=== PATIENT | female | born 1955 | race Two or more races ===

== ENCOUNTER 2020-07-04 12:24 | Inpatient (IN) | payer OTHER ==
[~2020-07-04] VITALS: Ht 162.6 cm; Wt 73.9 kg
--- NOTE | 2020-07-04 15:18 | NUR ---
MARLEEN ALICIA PAGED FOR ADMITTING ORDERS.
[2020-07-04 15:24] VITALS: BP 112/56
--- NOTE | 2020-07-04 15:56 | NUR ---
DR. MARLEEN ALICIA CALLED AND VERBALIZED HE WILL PUT ADMISSION ORDERS.
--- NOTE | 2020-07-04 16:00 | NUR ---
KAIT RN NOTE: Received Patient form [facility]. A/O x 4. Speaks Chinese but able to understand Azeri. Spoke with daughter over the phone for oral translation. Patient placed on Tele monitor, NSR 74. Pt on room air, no complaint of shortness of breath or respiratory distress. Dr is MATHEW Tan. Pt skin is intact, but refuse to do body check. Spoke with daughter who stated that mother did not want to be moved, had no skin issues. Pt has LAC and Right Wrist HL IV intact and flushed well. Spoke with daughter, who is the [employer] Designer per daughter statement. Daughter gave all history on mother. Hospital orientation done. Vital signs taken, Belongings done by [employer] [facility]PER. Called Med Recon Nurse Wojciech to do Med Recon. Bed in low, locked position. Safety measures observed. Call light in reach. Admitted with diagnosis Colitis. Clear Liquid diet. Will continue to monitor closely.
[2020-07-04] MEDS ORDERED: ATOR80TA PO (16:52)
[2020-07-04] MEDS ORDERED: SPIR25TA PO (16:52)
[2020-07-04] MEDS ORDERED: IPRA12.9 IH (16:52)
[2020-07-04] MEDS ORDERED: NITR0.4T48 SL (16:52)
[2020-07-04] MEDS ORDERED: NORT10CA PO (16:52)
[2020-07-04] MEDS ORDERED: FERR325T23 PO (16:52)
[2020-07-04] MEDS ORDERED: INSU100V36 SQ (16:52)
[2020-07-04] MEDS ORDERED: SACU1TAB7 PO (16:52)
[2020-07-04] MEDS ORDERED: IPRA0.2S49 NEB (16:52)
[2020-07-04] MEDS ORDERED: OMEP20CA15 PO (16:52)
[2020-07-04] MEDS ORDERED: EZET10TA16 PO (16:52)
[2020-07-04] MEDS ORDERED: ALBU18HF2 IH (16:52)
[2020-07-04] MEDS ORDERED: INSU100I26 SQ (16:52)
[2020-07-04] MEDS ORDERED: CLOP75TA15 PO (16:52)
[2020-07-04] MEDS ORDERED: ASPI-1498 PO (16:52)
[2020-07-04] MEDS ORDERED: ISOS30TA6 PO (16:52)
[2020-07-04] MEDS ORDERED: CARV6.252 PO (16:52)
[2020-07-04] MEDS ORDERED: FURO-144 PO (16:52)
[2020-07-04] MEDS ORDERED: ALBU2.5V38 IH (16:52)
[2020-07-04] MEDS ORDERED: AMIO200T4 PO (16:52)
--- NOTE | 2020-07-04 17:00 | NUR ---
MS RN NOTE Dr. Enrique Tan DNP at bedside, speaking and assessing patient. Number of daughter given to Dr. Tan. Dr. Tan ordered clear liquid diet, and morphine 2mg PO q4h. Paperwork from Ryan Dutta given to Stated that he will call the daughter
[2020-07-04] MEDS ORDERED: MORPHINE SULFATE INJ 2 MG/ML DISP.SYRIN IM PRN (17:30)
[2020-07-04] MEDS ORDERED: ALBUTEROL FS 2.5 MG/3 ML VIAL.NEB IH PRN (17:30)
[2020-07-04] MEDS ORDERED: MORPHINE SULFATE INJ 2 MG/ML DISP.SYRIN IV PRN (17:30)
[2020-07-04] MEDS ORDERED: Z GUARD REMEDY 2 OZ OINT TP PRN (17:30)
[2020-07-04] MEDS ORDERED: ONDANSETRON HCL/PF 4 MG/2 ML VIAL IVP PRN (17:30)
[2020-07-04] MEDS ORDERED: NITROGLYCERIN 0.4 MG/TAB BOTTLE SL PRN (17:30)
[2020-07-04] MEDS ORDERED: IPRATROPIUM NEB FS 0.5 MG/2.5 ML AMPUL.NEB NEB PRN (17:30)
[2020-07-04] MEDS: IV NS 0.9% 1,000 ML IV PRN (17:38)
[2020-07-04] MEDS ORDERED: PIPERACILLIN /TAZOBACTAM 2.25 G in IV D5W 50 ML IV SCH (18:00)
[2020-07-04] MEDS ORDERED: DEXTROSE 50%-WATER 50 ML DISP.SYRIN IV PRN (18:30)
--- NOTE | 2020-07-04 18:51 | NUR ---
MS RN NOTE: Pt in bed in lowest position. Pt to continue IV fluids. Waiting for Zosyn to be delivered, Pharmacy stated it is to be delivered soon. Pt on SCD pumps. Spoke with daughter to update on pt condition. Daughter's phone number given to MD. All needs attended. Pt requested breathing treatment, RT aware, currently awaiting RT treatment. No SOB. Will continue to closely monitor.
[2020-07-04] MEDS ORDERED: PIPERACILLIN /TAZOBACTAM 3.375 G in IV D5W 50 ML IV ONE (19:00)
[2020-07-04] MEDS: ALBUTEROL FS 2.5 MG/3 ML VIAL.NEB NEB SCH (19:44)
[2020-07-04 20:00] VITALS: BP 95/56
[2020-07-04] MEDS: CARVEDILOL 6.25 MG TABLET PO SCH (21:00)
[2020-07-04] MEDS ORDERED: ENOXAPARIN SODIUM 40 MG/0.4 ML DISP.SYRIN SQ SCH (21:00)
[2020-07-04] MEDS: ATORVASTATIN 40 MG TABLET PO SCH (21:41)
[2020-07-04] MEDS: NORTRIPTYLINE HCL 10 MG CAPSULE PO SCH (21:41)
[2020-07-04] MEDS: BLOOD SUGAR DIAGNOSTIC 1 EACH STRIP IN SCH (21:42)
[2020-07-04] MEDS: INSULIN GLARGINE, 100 UNIT/ML CARTRIDGE SQ SCH (21:52)
[2020-07-04] MEDS: INSULIN REGULAR, HUMAN 100 UNIT/ML 3 ML VIAL SQ PRN (21:53)
[2020-07-05] VITALS (7 sets, daily range): BP systolic 89–110; BP diastolic 35–75
[2020-07-05] MEDS: PIPERACILLIN /TAZOBACTAM 3.375 G in IV D5W 100 ML IV SCH ×3 (00:47→18:24)
[2020-07-05] MEDS: ALBUTEROL FS 2.5 MG/3 ML VIAL.NEB NEB SCH ×4 (01:30→20:07)
[2020-07-05] MEDS: ACETAMINOPHEN 325 MG TABLET PO PRN (03:38)
[2020-07-05 06:29] LABS: BASOPHILS % (AUTO) 0.4 % (0.0-2.0); HEMATOCRIT 29 % (33-45); HEMOGLOBIN 9.6 g/dL (11.5-14.8); LYMPHOCYTES # (AUTO) 1.2 /CMM (0.8-4.8); LYMPHOCYTES % (AUTO) 13.8 % (20.0-44.0); MEAN CORPUSCULAR HGB CONC 33 g/dl (31.0-36.0); MEAN CORPUSCULAR VOLUME 84 fL (82-100); MONOCYTES # (AUTO) 0.5 /CMM (0.1-1.30); MONOCYTES % (AUTO) 5.6 % (2.0-12.0); NEUTROPHILS # (AUTO) 6.7 /CMM (1.8-8.9); NEUTROPHILS % (AUTO) 79.2 % (43.0-81.0); PLATELET COUNT (AUTO) 124 /CMM (150-450); RED BLOOD CELL COUNT(AUTO) 3.44 MIL/uL (4.0-5.2); WHITE BLOOD COUNT (AUTO) 8.5 K/uL (4.3-11.0)
--- NOTE | 2020-07-05 07:15 | NUR ---
KAIT RN OPENING NOTES RECEIVED PATIENT RESTING ON BED. A/O X4. SPEAKS HEBREW BUT UNDERSTANDS PORTUGUESE. PT ON TELE MONITOR, SR @ 71. PT IS ON ROOM AIR, O2 SATURATION @ 96%. NO SOB OR ACUTE RESPIRATORY DISTRESS NOTED AT THIS TIME. PT HAS L AC WITH NS @75ML/HR AND R WRIST HL INTACT, PATENT AND FLUSHED. IV INFUSING WELL. SKIN IS INTACT. NO PAIN AT THIS TIME. SAFETY MEASURES OBSERVED. CALL LIGHT WITHIN REACH. BED LOCKED AND AT LOWEST POSITION. WILL CONTINUE TO MONITOR
[2020-07-05] MEDS: PANTOPRAZOLE 40 MG TABLET.DR PO SCH (07:30)
[2020-07-05] MEDS: INSULIN LISPRO/ASPART 100 UNIT/ML CARTRIDGE SQ SCH ×3 (07:30→17:30)
[2020-07-05] MEDS: BLOOD SUGAR DIAGNOSTIC 1 EACH STRIP IN SCH ×4 (07:30→22:03)
[2020-07-05 08:18] LABS: BILIRUBIN,TOTAL 0.5 mg/dL (0.2-1.0); TOTAL PROTEIN, SERUM 6.2 g/dL (6.4-8.2)
[2020-07-05 08:19] LABS: ALBUMIN 2.8 g/dL (3.4-5.0); PHOSPHORUS 2.9 mg/dL (2.5-4.9)
[2020-07-05 08:20] LABS: MAGNESIUM 2.3 mg/dL (1.8-2.4)
[2020-07-05 08:22] LABS: CALCIUM, SERUM 8.4 mg/dL (8.5-10.1); CREATININE 1.9 mg/dL (0.6-1.3)
--- NOTE | 2020-07-05 08:22 | NUR ---
NO S/S OF SOB NOTED. RESP TX DEFERRED. DAUGHTER HELPED TRANSLATE VIA PHONE CALL. WILL CONT TO MONITOR Addendum: 07/05/20 at 0823 by KADIE MATHEW RT Amended: Links added.
[2020-07-05] MEDS: EZETIMIBE 10 MG TABLET PO SCH (09:07)
[2020-07-05] MEDS: SPIRONOLACTONE 25 MG TABLET PO SCH (09:07)
[2020-07-05] MEDS: FUROSEMIDE 40 MG TABLET PO SCH (09:07)
[2020-07-05] MEDS: CLOPIDOGREL BISULFATE 75 MG TABLET PO SCH (09:08)
[2020-07-05] MEDS: FERROUS SULFATE (325 MG) 325 MG/TAB TABLET PO SCH (09:08)
[2020-07-05] MEDS: ISOSORBIDE MONONITRATE (30MG) 30 MG TAB.SR.24H PO SCH (09:08)
[2020-07-05] MEDS: CARVEDILOL 6.25 MG TABLET PO SCH ×2 (09:08→22:03)
[2020-07-05] MEDS: ASPIRIN EC 81 MG TABLET.DR PO SCH (09:08)
[2020-07-05] MEDS: AMIODARONE HCL 200 MG TABLET PO SCH (09:09)
--- NOTE | 2020-07-05 17:30 | NUR ---
RN NOTES PT REFUSED INSULIN, BLOOD SUGAR OF 78. WILL CONTINUE TO MONITOR
--- NOTE | 2020-07-05 18:49 | NUR ---
KAIT RN CLOSING NOTES PATIENT RESTING ON BED. A/O X4. SPEAKS BULGARIAN BUT UNDERSTANDS GREEK. PT ON TELE MONITOR, SR @ 70S. PT IS ON ROOM AIR, O2 SATURATION @ 96%. NO SOB OR ACUTE RESPIRATORY DISTRESS NOTED AT THIS TIME. PT HAS L AC WITH NS @75ML/HR AND R WRIST HL INTACT, PATENT AND FLUSHED. IV INFUSING WELL. SKIN IS INTACT. NO PAIN AT THIS TIME. ALL MEDS GIVEN ORDERED. ALL NEEDS ATTENDED. SAFETY MEASURES OBSERVED. CALL LIGHT WITHIN REACH. BED LOCKED AND AT LOWEST POSITION. WILL ENDORSE TO FOREST OFFICER FOR RHONDA
--- NOTE | 2020-07-05 19:10 | NUR ---
RN OPENING NOTES RECEIVED PATIENT IN BED. ALERT AND ORIENTED X4. MACEDONIAN SPEAKING PREFERRED. FULL CODE. ON ROOM AIR TOLERATING WELL. NO SIGNS OF SHORTNESS OF BREATH OR RESPIRATORY DISTRESS. BREATHING IS EVEN AND UNLABORED. MED SURG PROTOCOLS IN PLACE. BATHROOM PRIVILEGES, AMBULATE WITH ASSIST. SKIN IS WARM DRY AND INTACT. SOFT DIET NOTED. IV SITES NOT PATENT, REMOVED BOTH WITH CATHETERS INTACT. HELD WITH 2X2 GAUZE FOR 1 MINUTE ON EACH SITE. PLACED #22 ON RIGHT HAND. PATENT INTACT, INFUSING IV FLUIDS NS @75 ML/HR. PT DENIES PAIN AT THIS TIME. BED IS LOCKED IN LOWEST POSITION. CALL LIGHT WITHIN REACH. WILL CONTINUE TO MONITOR.
[2020-07-05] MEDS: NORTRIPTYLINE HCL 10 MG CAPSULE PO SCH (22:00)
[2020-07-05] MEDS: ATORVASTATIN 40 MG TABLET PO SCH (22:04)
[2020-07-05] MEDS: ENOXAPARIN SODIUM 30 MG/0.3 ML DISP.SYRIN SQ SCH (22:07)
[2020-07-05] MEDS: INSULIN GLARGINE, 100 UNIT/ML CARTRIDGE SQ SCH (22:28)
[2020-07-05] MEDS: INSULIN REGULAR, HUMAN 100 UNIT/ML 3 ML VIAL SQ PRN (22:35)
--- NOTE | 2020-07-06 00:12 | NUR ---
PT DAUGHTER, REHAB CALLED FOR UPDATES. VOCALIZED DESIRE TO BE INFORMED ON PROGRESS.
[2020-07-06] MEDS: PIPERACILLIN /TAZOBACTAM 3.375 G in IV D5W 100 ML IV SCH ×3 (01:03→17:19)
[2020-07-06] MEDS: IV NS 0.9% 1,000 ML IV PRN (01:03)
[2020-07-06] MEDS: ACETAMINOPHEN 325 MG TABLET PO PRN ×2 (01:50→08:24)
[2020-07-06] MEDS: ALBUTEROL FS 2.5 MG/3 ML VIAL.NEB NEB SCH ×4 (01:51→19:30)
--- NOTE | 2020-07-06 01:51 | NUR ---
PT VERBALIZED PAIN /10 CONCENTRATED IN THE RIGHT LOWER ABDOMEN, PT REQUESTED TYLENOL Addendum: 07/06/20 at 0530 by ALLAN LEGGETT RN REASSESSMENT OF PAIN @0230 PT VERBALIZED DECREASED PAIN, TOLERABLE SCALING 10/22. MORE DISCOMFORT RATHER THAN PAIN. VERBALIZED FEELINGS OF BEING FULL, AND FLATUS PASSING. PT VERBALIZED DESIRE TO SLEEP. WILL CONTINUE TO SLEEP.
[2020-07-06 04:00] VITALS: BP 108/50
--- NOTE | 2020-07-06 07:48 | NUR ---
RN CLOSING PT IS RESTING IN BED. MED SURG MONITORING IN PLACE. PT IS TOLERATING ROOM AIR, NO SIGNS OF RESPIRATORY DISTRESS OR SHORTNESS OF BREATH. BREATHING IS EVEN AND UNLABORED. PATIENT HAD ONE BOWEL MOVEMENT. IV SITES ARE PATENT AND INTACT. BED IS LOCKED IN LOWEST POSITION. CALL LIGHT WITHIN REACH. ENDORSED TO ONCOMING NURSE FOR CONTINUATION OF CARE.
[2020-07-06 08:00] VITALS: BP 102/44
[2020-07-06] MEDS: BLOOD SUGAR DIAGNOSTIC 1 EACH STRIP IN SCH ×4 (08:00→21:54)
[2020-07-06] MEDS: EZETIMIBE 10 MG TABLET PO SCH (08:10)
[2020-07-06] MEDS: FUROSEMIDE 40 MG TABLET PO SCH (08:11)
[2020-07-06] MEDS: PANTOPRAZOLE 40 MG TABLET.DR PO SCH (08:11)
[2020-07-06] MEDS: CLOPIDOGREL BISULFATE 75 MG TABLET PO SCH (08:11)
[2020-07-06] MEDS: ISOSORBIDE MONONITRATE (30MG) 30 MG TAB.SR.24H PO SCH (08:16)
[2020-07-06] MEDS: SPIRONOLACTONE 25 MG TABLET PO SCH (08:16)
[2020-07-06] MEDS: CARVEDILOL 6.25 MG TABLET PO SCH ×2 (08:17→21:54)
[2020-07-06] MEDS: AMIODARONE HCL 200 MG TABLET PO SCH (08:17)
[2020-07-06] MEDS: INSULIN LISPRO/ASPART 100 UNIT/ML CARTRIDGE SQ SCH ×3 (08:21→18:00)
[2020-07-06] MEDS: ASPIRIN EC 81 MG TABLET.DR PO SCH (08:26)
--- NOTE | 2020-07-06 08:40 | NUR ---
RN OPENING NOTES RECEIVED PATIENT IN BED. ALERT AND ORIENTED X4. KYRGYZ SPEAKING PREFERRED. FULL CODE. ON ROOM AIR TOLERATING WELL WITH NO SIGNS OF SHORTNESS OF BREATH OR RESPIRATORY DISTRESS NOTED. BATHROOM PRIVILEGES, AMBULATE WITH ASSIST. SKIN IS INTACT. SOFT DIET NOTED/ VEGETARIAN MORAVIAN NO MEAT NO CHICKEN JUST FISH.PT HAS #22 ON RIGHT HAND IS INTACT, WELL FLUSHED AND NO INFILTRATION NOTED INFUSING IV FLUIDS NS @75 ML/HR. PT DENIES PAIN AT THIS TIME. SAFETY MEASUREMENTS ARE IMPLEMENTED BY HOSPITAL POLICY.BED IS LOCKED AND IN LOWEST POSITION. CALL LIGHT WITHIN REACH. WILL CONTINUE TO MONITOR.
[2020-07-06] MEDS: FERROUS SULFATE (325 MG) 325 MG/TAB TABLET PO SCH (09:16)
[2020-07-06 12:00] VITALS: BP 95/44
--- NOTE | 2020-07-06 14:00 | NUR ---
RN NOTES PT DOING FINE NO SOB OR RESPIRATORY DISTRESS NOTED. CONTINUE TO MONITOR
[2020-07-06 16:52] LABS: BASOPHILS % (AUTO) 0.2 % (0.0-2.0); EOSINOPHILS % (AUTO) 3.7 % (0.0-6.0); HEMATOCRIT 26 % (33-45); HEMOGLOBIN 8.7 g/dL (11.5-14.8); LYMPHOCYTES # (AUTO) 1.4 /CMM (0.8-4.8); MEAN CORPUSCULAR HGB CONC 34 g/dl (31.0-36.0); MEAN CORPUSCULAR VOLUME 83 fL (82-100); MONOCYTES # (AUTO) 0.6 /CMM (0.1-1.30); MONOCYTES % (AUTO) 7.9 % (2.0-12.0); NEUTROPHILS # (AUTO) 4.8 /CMM (1.8-8.9); NEUTROPHILS % (AUTO) 68.2 % (43.0-81.0); PLATELET COUNT (AUTO) 121 /CMM (150-450); RED BLOOD CELL COUNT(AUTO) 3.14 MIL/uL (4.0-5.2); WHITE BLOOD COUNT (AUTO) 7.1 K/uL (4.3-11.0)
[2020-07-06 17:33] LABS: ALBUMIN 2.7 g/dL (3.4-5.0); BILIRUBIN,TOTAL 0.2 mg/dL (0.2-1.0); CALCIUM, SERUM 8.3 mg/dL (8.5-10.1); CREATININE 1.9 mg/dL (0.6-1.3); MAGNESIUM 1.9 mg/dL (1.8-2.4); PHOSPHORUS 3.5 mg/dL (2.5-4.9); POTASSIUM 4.3 mmol/L (3.5-5.1); TOTAL PROTEIN, SERUM 6.2 g/dL (6.4-8.2)
[2020-07-06] MEDS: INSULIN REGULAR, HUMAN 100 UNIT/ML 3 ML VIAL SQ PRN ×2 (17:54→22:43)
--- NOTE | 2020-07-06 19:09 | NUR ---
RN OPENING NOTES PT IS RESTING IN BED. FULL CODE. MED SURG MONITORING IN PLACE. PORTUGUESE SPEAKING PREFERRED. UNDERSTANDS [place]HAL[place]. ON 2L OXYGEN VIA NASAL CANNULA, TOLERATING WELL. NO SIGNS OF SOB OR RESP DISTRESS AT THIS TIME. BREATHING IS EVEN AND UNLABORED. PT DENIES PAIN, BUT VERBALIZES SLIGHT ABDOMINAL DISCOMFORT ABLE TO TOLERATE. SKIN WARM DRY INTACT. IV SITES RIGHT HAND PATEN INTACT FLUSHED. IVF NS RUNNING AT 75 ML/HR.AMBULATORY WITH STEADY GAIT. BED IS LOCKED IN LOWEST POSITION. CALL LIGHT WITHIN REACH. WILL CONTINUE TO MONITOR.
--- NOTE | 2020-07-06 19:18 | NUR ---
RN NOTES PT IS FEELING SOB. CALLED RT. CAME AND NEXT TREATMENT IS 1899 THEY PUT HER ON 2 L OF OXYGEN
--- NOTE | 2020-07-06 19:19 | NUR ---
RN CLOSING PT IS RESTING IN BED. MED SURG MONITORING IN PLACE. PT IS ON 2 L FEELING SOB WHEN SHE MOVES. PATIENT HAD ONE BOWEL MOVEMENT. IV SITES ARE PATENT AND INTACT. SAFETY MEASUREMENTS ARE IMPLEMENTED BY HOSPITAL PROTOCOL. BED IS LOCKED IN LOWEST POSITION. CALL LIGHT WITHIN REACH. WILL ENDORSED TO ONCOMING NURSE FOR CONTINUATION OF CARE.
[2020-07-06 20:00] VITALS: BP 110/59
--- NOTE | 2020-07-06 21:43 | NUR ---
NON ADMIN OF SCHEDULED PAMELOR. PT REFUSED MEDICATION. EXPLAINED RISKS AND BENEFITS X 2. PT STILL REFUSED. WILL CONTINUE TO MONITOR.
[2020-07-06] MEDS: NORTRIPTYLINE HCL 10 MG CAPSULE PO SCH (21:54)
[2020-07-06] MEDS: ATORVASTATIN 40 MG TABLET PO SCH (21:54)
[2020-07-06] MEDS: ENOXAPARIN SODIUM 30 MG/0.3 ML DISP.SYRIN SQ SCH (21:58)
[2020-07-06] MEDS: INSULIN GLARGINE, 100 UNIT/ML CARTRIDGE SQ SCH (22:42)
--- NOTE | 2020-07-06 23:02 | NUR ---
PT REQUESTS AT THIS TIME TO TAKE OFF NASAL CANNULA. PT IS AWARE OF RISKS AND BENEFITS. PT STILL INSISTS ON REMOVING, PT VERBALIZES IT IS NOT NEEDED AT THIS TIME. VERBALIZES UNDERSTANDING OF THE FEELINGS OF SHORTNESS OF BREATH WILL PUT BACK ON. NO SIGNS OF SOB OR RESPIRATORY DISTRESS NOTED AT THIS TIME. BREATHING IS EVEN AND UNLABORED. WILL CONTINUE TO MONITOR.
[2020-07-07] MEDS: IV NS 0.9% 1,000 ML IV PRN (00:23)
[2020-07-07] MEDS: PIPERACILLIN /TAZOBACTAM 3.375 G in IV D5W 100 ML IV SCH ×2 (00:32→08:58)
--- NOTE | 2020-07-07 00:40 | NUR ---
URINE SPECIMEN COLLECTED. SENT FOR LAB.
[2020-07-07] MEDS: ALBUTEROL FS 2.5 MG/3 ML VIAL.NEB NEB SCH ×4 (00:48→13:40)
--- NOTE | 2020-07-07 00:50 | NUR ---
AFTER AMBULATING TO TOILET PT WAS HAVING DIFFICULTY BREATHING AND COMPLAINING OF STOMACH PAIN 12/20. APPLIED NASAL CANNULA AT 2L OXYGEN. VITAL SIGNS AT THIS TIME WERE HR 69 BP 116/47 RR 25 O2 SAT 100%. PT REQUESTED TYLENOL. CALLED RT FOR BREATHING TREATMENT . Addendum: 07/07/20 at 0127 by ALLAN LEGGETT RN AFTER BREATHING TREATMENT, PT VERBALIZES FEELING BETTER. RESPIRATION RATE IS 17. O2 SAT AT 100. WILL KEEP NASAL CANNULA ON FOR NOW.
[2020-07-07] MEDS: ACETAMINOPHEN 325 MG TABLET PO PRN (00:51)
--- NOTE | 2020-07-07 02:13 | NUR ---
FOLLOW UP/REASSESSMENT PT IS RESTING IN BED. AWAKE. DENIES CHEST PAIN AT THIS TIME. STOMACH PAIN 0/10. SLIGHT DISCOMFORT, BUT VERBALIZES IT IS TOLERABLE. NO SIGNS OF SHORTNESS OF BREATH. NO RESPIRATORY DISTRESS NOTED. WILL CONTINUE TO MONITOR.
[2020-07-07 04:00] VITALS: BP 99/47
[2020-07-07 06:29] LABS: BASOPHILS % (AUTO) 0.5 % (0.0-2.0); EOSINOPHILS % (AUTO) 4.5 % (0.0-6.0); HEMATOCRIT 26 % (33-45); HEMOGLOBIN 8.5 g/dL (11.5-14.8); LYMPHOCYTES # (AUTO) 1.9 /CMM (0.8-4.8); LYMPHOCYTES % (AUTO) 33.2 % (20.0-44.0); MEAN CORPUSCULAR HGB CONC 33 g/dl (31.0-36.0); MEAN CORPUSCULAR VOLUME 83 fL (82-100); MONOCYTES # (AUTO) 0.5 /CMM (0.1-1.30); MONOCYTES % (AUTO) 8.3 % (2.0-12.0); NEUTROPHILS % (AUTO) 53.5 % (43.0-81.0); PLATELET COUNT (AUTO) 111 /CMM (150-450); RED BLOOD CELL COUNT(AUTO) 3.05 MIL/uL (4.0-5.2); WHITE BLOOD COUNT (AUTO) 5.6 K/uL (4.3-11.0)
--- NOTE | 2020-07-07 06:32 | NUR ---
RN CLOSING NOTES PT IS RESTING IN BED. CURRENTLY ROOM AIR.TOLERATING WELL. BREATHING IS EVEN AND UNLABORED. NO SIGNS OF SOB OR RESPIRATORY DISTRESS. USES O2 NEEDED. IV SITE RIGHT HAND INTACT, PATENT FLUSHED. CURRENTLY INFUSING NS @75 ML/HR. NEEDS ATTENDED. PATIENT HAS BEEN COOPERATIVE THROUGHOUT THE NIGHT. 2 VOIDS, NO BM. PATIENT BED IS LOCKED IN LOWEST POSITION, BED ALARM ON. CALL LIGHT WITHIN REACH. WILL ENDORSE ONCOMING NURSE FOR CONTINUATION OF CARE.
[2020-07-07 06:36] LABS: APPEARANCE,URINE CLEAR (CLEAR); BILIRUBIN,URINE NEGATIVE (NEGATIVE); BLOOD, URINE NEGATIVE Ery/uL (NEGATIVE); COLOR,URINE YELLOW (YELLOW); KETONES,URINE NEGATIVE (NEGATIVE); LEUKOCYTE ESTERASE ,URINE NEGATIVE (NEGATIVE); NITRITE, URINE NEGATIVE (NEGATIVE); PROTEIN,URINE NEGATIVE (NEGATIVE); UGLUCOSE NEGATIVE (NEGATIVE); UROBILINOGEN,URINE 0.2 EU/dL (0.2)
[2020-07-07 06:44] LABS: ALBUMIN 2.6 g/dL (3.4-5.0); BILIRUBIN,TOTAL 0.2 mg/dL (0.2-1.0); CALCIUM, SERUM 8.7 mg/dL (8.5-10.1); CREATININE 1.6 mg/dL (0.6-1.3); MAGNESIUM 1.9 mg/dL (1.8-2.4); PHOSPHORUS 3.6 mg/dL (2.5-4.9); POTASSIUM 3.9 mmol/L (3.5-5.1); TOTAL PROTEIN, SERUM 5.9 g/dL (6.4-8.2)
[2020-07-07 06:55] LABS: CREATININE, URINE 36.2 MG/DL (30.0-125.0); URINE TOTAL PROTEIN 9.2 mg/dL (0-11.9)
[2020-07-07] MEDS: BLOOD SUGAR DIAGNOSTIC 1 EACH STRIP IN SCH ×2 (07:43→11:14)
--- NOTE | 2020-07-07 08:20 | NUR ---
RN OPENING NOTES RECEIVED PATIENT IN BED. ALERT AND ORIENTED X4. ALBANIAN SPEAKING PREFERRED. FULL CODE. ON N/C 2L TOLERATING WELL WITH NO SIGNS OF SHORTNESS OF BREATH OR RESPIRATORY DISTRESS NOTED. BATHROOM PRIVILEGES, AMBULATE WITH ASSIST. SKIN IS INTACT. SOFT DIET NOTED/ VEGETARIAN JEWISH NO MEAT NO CHICKEN JUST FISH.PT HAS #22 ON RIGHT HAND IS INTACT, WELL FLUSHED AND NO INFILTRATION NOTED INFUSING IV FLUIDS NS @75 ML/HR. PT DENIES PAIN AT THIS TIME. SAFETY MEASUREMENTS ARE IMPLEMENTED BY HOSPITAL POLICY.BED IS LOCKED AND IN LOWEST POSITION, AND SIDE RAILS ARE UPX2. CALL LIGHT WITHIN REACH. WILL CONTINUE TO MONITOR.
[2020-07-07] MEDS: PANTOPRAZOLE 40 MG TABLET.DR PO SCH (08:52)
[2020-07-07] MEDS: EZETIMIBE 10 MG TABLET PO SCH (08:52)
[2020-07-07] MEDS: FUROSEMIDE 40 MG TABLET PO SCH (08:53)
[2020-07-07] MEDS: ASPIRIN EC 81 MG TABLET.DR PO SCH (08:53)
[2020-07-07] MEDS: ISOSORBIDE MONONITRATE (30MG) 30 MG TAB.SR.24H PO SCH (08:53)
[2020-07-07] MEDS: AMIODARONE HCL 200 MG TABLET PO SCH (08:53)
[2020-07-07] MEDS: CLOPIDOGREL BISULFATE 75 MG TABLET PO SCH (08:53)
[2020-07-07] MEDS: SPIRONOLACTONE 25 MG TABLET PO SCH (08:54)
[2020-07-07] MEDS: FERROUS SULFATE (325 MG) 325 MG/TAB TABLET PO SCH (08:54)
[2020-07-07] MEDS: CARVEDILOL 6.25 MG TABLET PO SCH (08:54)
[2020-07-07] MEDS: INSULIN LISPRO/ASPART 100 UNIT/ML CARTRIDGE SQ SCH ×2 (08:57→13:32)
--- NOTE | 2020-07-07 09:30 | NUR ---
RN NOTES PT REFUSED THE CT OF ABD ASKED TO COME BACK LATER
--- NOTE | 2020-07-07 10:00 | NUR ---
RN NOTES DC ORDER. DR JUD ALVARENGA ASKED TO GISSELL THE CT OF ABD RESULT.
[2020-07-07 10:49] LABS: EOSINOPHIL,URINE None Seen
[2020-07-07 12:00] VITALS: BP 132/68
--- NOTE | 2020-07-07 12:00 | NUR ---
RN NOTES PT LEFT FOR CT OF ABD
--- NOTE | 2020-07-07 16:10 | NUR ---
RN NOTES TALKED TO DAUGHTER WILL COME TO PICK HER UP IN 1 HOUR LIVES [place]
--- NOTE | 2020-07-07 17:19 | NUR ---
RN NOTES PT DC .VS WNL.DC IV PREP DC PAPER WORK. SIGNED VALUABLE AND DC FORM. PT VERBILZED UNDERSTANDING OF DC INSTRUCTIONS AND MEDS SIDE EFFECTS.PT IS STABLE WHEELED DOWN TO THE LOBBY AND LEFT WITH HER DAUGHTER. SAFETY MEASUREMENTS WERE IMPLEMENTED. PT LEFT IN GOOD SPIRIT
== END 2020-07-07 17:00 | disposition home or self-care (01) | DRG 720 ==
LOC: MEDSG1 15:00 → TELE1 17:19 → MEDSG1 07-05 22:14
PROVIDERS: ADMIT Nurse Practitioner Acute Care; ATTEND Nurse Practitioner Acute Care
DX: A41.9 Sepsis, unspecified organism (principal); K52.9 Noninfective gastroenteritis and colitis, unspecified; I50.42 Chronic combined systolic (congestive) and diastolic (congestive) heart failure; I25.10 Atherosclerotic heart disease of native coronary artery without angina pectoris; I13.0 Hypertensive heart and chronic kidney disease with heart failure and stage 1 through stage 4 chronic kidney disease, or unspecified chronic kidney disease; N18.3 Chronic kidney disease, stage 3 (moderate); N17.0 Acute kidney failure with tubular necrosis; K57.90 Diverticulosis of intestine, part unspecified, without perforation or abscess without bleeding; I25.2 Old myocardial infarction; E11.22 Type 2 diabetes mellitus with diabetic chronic kidney disease; D63.8 Anemia in other chronic diseases classified elsewhere; K65.9 Peritonitis, unspecified; J44.9 Chronic obstructive pulmonary disease, unspecified; K80.20 Calculus of gallbladder without cholecystitis without obstruction; I27.20 Pulmonary hypertension, unspecified; E78.5 Hyperlipidemia, unspecified; Z79.4 Long term (current) use of insulin; Z86.74 Personal history of sudden cardiac arrest; Z95.5 Presence of coronary angioplasty implant and graft; Z95.810 Presence of automatic (implantable) cardiac defibrillator; Z83.3 Family history of diabetes mellitus; Z82.49 Family history of ischemic heart disease and other diseases of the circulatory system; Z82.3 Family history of stroke
CPT/HCPCS: 36415; 80053-TC; 81000-TC; 82570-TC; 82962-TC; 83735-TC; 84100-TC; 84155-TC; 84300-TC; 84484-TC; 85025-TC; 87081-TC; 93307-TC; 94799-TC; G0378; J1650; J1815; J2543; J7030; J7060